=== PATIENT | female | born 1995 | race Two or more races ===

== ENCOUNTER 2017-08-14 14:10 | Observation (INO) | payer OTHER ==
[2017-08-14] MEDS ORDERED: ONDANSETRON 4 MG/2 ML VIAL IVP ONE (15:31)
[2017-08-14] MEDS ORDERED: NS 1,000 ML IV ONE ×2 (15:31→17:34)
--- NOTE | 2017-08-14 15:31 | EDPHY ---
H & P Stated Complaint: POSSIBLE REACTION TO TREATMENT FOR H PYLORI, SEEN EARLIER AT HPI/ROS: HPI CHIEF COMPLAINT: Abdominal pain, nausea, vomiting HISTORY OF PRESENT ILLNESS: This patient 21-year-old female significant past medical history for cyclic vomiting syndrome, anxiety, in H pylori, she presents emergency room with nausea vomiting and upper abdominal pain. She describes the upper abdominal pain is rather severe 7/10 nonradiating. Associated nausea vomiting. Also had loose stool this morning. She denies any fever. Denies chest pain or shortness of breath. Main complaint is nausea with abdominal pain epigastric region. Past Medical History: Cyclic vomiting syndrome, anxiety, recently being treated for H pylori Dr. Elaine is her GI physician. Past Surgical History: D and C. Otherwise no intra-abdominal surgeries. Social History: Denies daily use of alcohol. Smokes tobacco daily. Denies other illicit drugs. Family History: Noncontributory ROS REVIEW OF SYSTEMS: A comprehensive 10 point review of systems is otherwise negative aside from elements mentioned in the history of present illness. Exam Constitutional appears uncomfortable, triage nursing summary reviewed, vital signs reviewed, awake/alert. Eyes normal conjunctivae and sclera, EOMI, PERRLA. HENT normal inspection, atraumatic, moist mucus membranes, no epistaxis, neck supple/ no meningismus, no raccoon eyes. Respiratory clear to auscultation bilaterally, normal breath sounds, no respiratory distress, no wheezing. Cardiovascular rate normal, regular rhythm, no murmur, no edema, distal pulses normal. Gastrointestinal soft, mild tender palpation epigastric region, no rebound, no guarding, normal bowel sounds, no distension, no pulsatile mass. Genitourinary no CVA tenderness. Musculoskeletal no midline vertebral tenderness, full range of motion, no calf swelling, no tenderness of extremities, no meningismus, good pulses, neurovascularly intact. Skin pink, warm, & dry, no rash, skin atraumatic. Neurologic awake, alert and oriented x 3, AAOx3, moves all 4 extremities equally, motor intact, sensory intact, CN II-XII intact, normal cerebellar, normal vision, normal speech. Psychiatric normal mood/affect. Heme/Lymph/Immune no lymphadenopathy. Differential diagnosis includes but is not limited to and in no particular order : Bowel obstruction, appendicitis, gallbladder disease, diverticulitis, colitis , enteritis, perforated viscus, gastritis, GERD, esophagitis, urinary tract infection, pyelonephritis, kidney stones Medical Decision Making: Plan for this patient IV establishment IV fluid bolus , IV Haldol 5 mg for nausea vomiting anxiety, check basic blood work, CT abdomen pelvis with IV contrast Re-evaluation: 1737: Re-evaluation at this time patient resting comfortably. Feels much better after IV fluids and Haldol. Not vomiting. CT scan pending. 1748: I did re-evaluate her abdomen is soft she does have some periumbilical abdominal pain. She is not vomiting she does tell me she feels better. I have ordered her 2nd L at this time additionally she still complains of some nausea so I have ordered her 12.5 mg IV Phenergan. Will re-evaluate. Urinalysis and CT pending. 1915: CT scan abdomen pelvis with IV contrast called to me shows an abnormal fluid collection the right lower quadrant. The differential for this includes fluid in the small intestines, versus hydrosalpinx versus ruptured appendicitis with abscess. Spoke with Dr. Aguirre about this. Will proceed with pelvic ultrasound to further delineate this right lower quadrant fluid collection. 2019: I spoke with the hospitalist service Dr. Maximiliano Alvarado agrees to admit this patient for intractable abdominal pain and nausea. Additionally I will consult Dr. Braswell about this patient's abnormal CT scan. The ultrasound did not show acute appendicitis. Nor did show hydrosalpinx. Recommend admission the hospital for ongoing abdominal pain will plan most likely to repeat imaging of her abdomen in a few hours with CT scan abdomen pelvis with IV and p.o. contrast. Will distally consult Dr. Braswell for further recommendations. 2022: I have consult Dr. Braswell with surgery. He will go and see the patient. Source: Patient - Personal History LMP (Females 10-55): 8-14 Days Ago Current Tetanus Diphtheria and Acellular Pertussis (TDAP): Yes Tetanus Vaccine Date: < 10 YEARS - Medical/Surgical History Hx Asthma: No Hx Chronic Respiratory Disease: No Hx Diabetes: No Hx Cardiac Disease: No Hx Renal Disease: No Hx Cirrhosis: No Hx Alcoholism: No Hx HIV/AIDS: No Hx Splenectomy or Spleen Trauma: No Other PMH: anxiety, depression, recurrent n/v with neg w/u. , HSV, PV. molar and two d&c's in mar 2015, - Social History Smoking Status: Current some day smoker Constitutional: Initial Vital Signs Temperature (C) 36.9 C 08/14/17 14:48 Heart Rate 94 08/14/17 14:48 Respiratory Rate 16 08/14/17 14:48 Blood Pressure 139/84 H 08/14/17 14:48 O2 Sat (%) 97 08/14/17 14:48 O2 Delivery Mode Room Air Allergies/Adverse Reactions: No Known Allergies Allergy (Verified 08/14/17 14:50) Home Medications: Medication Instructions Recorded ALPRAZolam [Xanax 1 MG (*)] 2 mg PO HS 11/02/14 Acyclovir [Zovirax 400 mg (*)] 400 mg PO BID 08/14/17 DULoxetine [Cymbalta 30 MG (*)] 30 mg PO DAILY 08/14/17 Acetaminophen [Tylenol 325mg (*)] 650 mg PO Q4HRS PRN tab 08/15/17 Ondansetron Odt [Zofran Odt 4 mg 4 mg PO Q4HRS PRN #30 tab 08/15/17 (*)] Medical Decision Making - Data Points Laboratory Results: Laboratory Results 08/14/17 15:10 08/14/17 15:53 Medications Given: Discontinued Medications Acyclovir (Acyclovir) 400 mg PO BID SORIN Stop: 09/14/17 08:59 Last Admin: 08/15/17 09:51 Dose: 400 mg Duloxetine HCl (Cymbalta) 30 mg PO DAILY SORIN Stop: 02/11/18 08:59 Last Admin: 08/15/17 09:50 Dose: 30 mg Haloperidol Lactate (Haldol Injection) 5 mg IVP EDNOW ONE Stop: 08/14/17 15:36 Last Admin: 08/14/17 15:39 Dose: 5 mg Sodium Chloride (Ns) 1,000 mls @ 0 mls/hr IV EDNOW ONE; Wide Open PRN Reason: Protocol Stop: 08/14/17 15:32 Last Admin: 08/14/17 15:39 Dose: 1,000 mls Sodium Chloride (Ns) 1,000 mls @ 0 mls/hr IV ONCE ONE PRN Reason: Wide Open Stop: 08/14/17 17:35 Last Admin: 08/14/17 18:05 Dose: 1,000 mls Sodium Chloride (1/2 Ns) 1,000 mls @ 100 mls/hr IV CONT SORIN Stop: 02/10/18 20:44 Last Admin: 08/15/17 02:11 Dose: 1,000 mls Ondansetron HCl (Zofran) 4 mg IVP EDNOW ONE Stop: 08/14/17 15:32 Last Admin: 08/14/17 15:39 Dose: 4 mg Ondansetron HCl (Zofran) 4 mg IVP Q4HRS PRN PRN Reason: Nausea/Vomiting, Can't Take PO Stop: 02/10/18 20:36 Last Admin: 08/14/17 20:52 Dose: 4 mg Ondansetron HCl (Zofran Odt) 4 mg PO Q4HRS PRN PRN Reason: Nausea/Vomiting, Use 1st Stop: 02/10/18 20:36 Last Admin: 08/15/17 09:57 Dose: 4 mg Oxycodone HCl (Oxycodone Ir) 5 - 10 mg PO Q3HRS PRN PRN Reason: Pain, Severe Able to Take PO Stop: 08/24/17 20:36 Last Admin: 08/15/17 05:19 Dose: 5 mg Promethazine HCl (Phenergan) 12.5 mg IVP ONCE ONE Stop: 08/14/17 17:49 Last Admin: 08/14/17 18:06 Dose: 12.5 mg Departure - Departure Disposition: [facility] Acute Clinical Impression: Abdominal pain Qualifiers: Abdominal location: generalized Qualified Code(s): R10.84 - Generalized abdominal pain Condition: Good
[2017-08-14] MEDS ORDERED: HALOPERIDOL LACT 5 MG/ML INJ IVP ONE (15:35)
[2017-08-14 15:43] LABS: % IMMATURE GRANULYOCYTES 0.5 % (0.0-1.1); ABSOLUTE IMMATURE GRANULOCYTES 0.08 10^3/uL (0.00-0.10); ADD DIFF? NO; ADD MORPH? NO; ADD SCAN? NO; ATYPICAL LYMPHOCYTE FLAG 0 (0-99); FRAGMENT RBC FLAG 0 (0-99); HEMATOCRIT 42.5 % (38.0-47.0); HEMOGLOBIN 14.6 g/dL (12.6-16.3); LEFT SHIFT FLG 0 (0-99); LIPEMIA HEMOLYSIS FLAG 90 (0-99); MEAN CELL HEMOGLOBIN 30.5 pg (27.9-34.1); MEAN CELL HEMOGLOBIN CONCENTR. 34.4 g/dL (32.4-36.7); MEAN CELL VOLUME 88.9 fL (81.5-99.8); MEAN PLATELET VOLUME 9.6 fL (8.7-11.7); PLATELET CLUMPS FLAG 0 (0-99); PLATELET COUNT 324 10^3/uL (150-400); RED BLOOD CELL COUNT 4.78 10^6/uL (4.18-5.33); RED CELL DISTRIBUTION WIDTH 13.7 % (11.5-15.2)
[2017-08-14 16:18] LABS: ALANINE AMINOTRANSFERASE 29 IU/L (9-52); ALBUMIN 4.7 g/dL (3.5-5.0); ALKALINE PHOSPHATASE 54 IU/L (38-126); ANION GAP 19 mEq/L (8-16); ASPARTATE AMINOTRANSFERASE 20 IU/L (14-46); BILIRUBIN,TOTAL 0.8 mg/dL (0.1-1.4); BILIRUBIN-CONJUGATED 0.3 mg/dL (0.0-0.5); BILIRUBIN-UNCONJUGATED 0.5 mg/dL (0.0-1.1); CALCIUM 9.7 mg/dL (8.5-10.4); CARBON DIOXIDE 21 mEq/l (22-31); CHLORIDE 106 mEq/L (97-110); CREATININE 0.6 mg/dL (0.6-1.0); GLOMERULAR FILTRATION RATE > 60; GLUCOSE 102 mg/dL (70-100); POTASSIUM 3.6 mEq/L (3.5-5.2); SODIUM 146 mEq/L (134-144); TOTAL PROTEIN 7.6 g/dL (6.3-8.2)
[2017-08-14] MEDS ORDERED: PROMETHAZINE HCL 25 MG/ML INJ IVP ONE (17:48)
[2017-08-14 17:54] LABS: COLOR YELLOW; LEUKOCYTE ESTERASE,URINE NEGATIVE (NEGATIVE); NITRITE,URINE NEGATIVE (NEGATIVE)
[2017-08-14] MEDS ORDERED: IOPAMIDOL (ISOVUE-300) 100 ML BTL ONE (18:29)
[2017-08-14] MEDS ORDERED: PROMETHAZINE HCL 25 MG/ML INJ IVP PRN (20:37)
[2017-08-14] MEDS ORDERED: ONDANSETRON DISINTEGRATING 4 MG TAB PO PRN (20:37)
[2017-08-14] MEDS ORDERED: ONDANSETRON 4 MG/2 ML VIAL IVP PRN (20:37)
[2017-08-14] MEDS ORDERED: ACETAMINOPHEN 325 MG TAB PO PRN (20:37)
[2017-08-14] MEDS: oxyCODONE IR 5 MG TAB PO PRN (20:52)
[2017-08-14] MEDS: 1/2 NS 1,000 ML IV SCH (20:56)
--- NOTE | 2017-08-14 21:01 | PDCONSULT ---
Chair Caner Note: Chief complaint: Intractable nausea vomiting Seen at the request of Dr. Zamorano emergency room [facility] History of present illness: This is a 21-year-old woman presents with intractable nausea and vomiting after taking antibiotics for treatment of H pylori this morning. The patient has had a recent diagnosis of H pylori this past week and has been tolerating her medication up until today. She is very anxious and concerned about her nausea and vomiting and has had multiple medications for this problem. CT scan of the abdomen and pelvis to rule out other injuries showed possible pelvic inflammation on the right with differential of appendicitis, small-bowel obstruction, mesenteric inflammation, hydrosalpinx or abscess. The patient's pain is mostly in the epigastric region likely from emesis Previous diagnosis of cyclic vomiting 1 year ago Past medical history: Cyclic vomiting Past surgical history: None Family history noncontributory Medications at home Allergies: None Review of systems significant for H pylori and cyclic vomiting. Also complains of flatulence and abdominal bloating. Recent URI. All others reviewed and are negative Alert oriented anxious Sclerae anicteric Oropharynx moist Lungs clear bilaterally Regular rate and rhythm Abdomen soft nontender non distended Minimally tender epigastric region. No hepatosplenomegaly no rebound no scars indwelling umbilical being 2+ over 2+ radial dorsalis pedis pulses no rashes Normal skin turgor and tone No cervical supraclavicular adenopathy Trachea midline no JVD 08/14/17 15:10 08/14/17 15:53 Total Bilirubin 0.8 mg/dL (0.1-1.4) 08/14/17 15:53 Conjugated Bilirubin 0.3 mg/dL (0.0-0.5) 08/14/17 15:53 Unconjugated Bilirubin 0.5 mg/dL (0.0-1.1) 08/14/17 15:53 AST 20 IU/L (14-46) 08/14/17 15:53 ALT 29 IU/L (9-52) 08/14/17 15:[address] 08/14/17 15:35 Impression: 1. Chronic polycystic ovarian disease. 2. Right hydrosalpinx versus unusual prominent loop of fluid-filled small bowel versus chronic abscess from ruptured appendix. Consider pelvic sonogram +- repeat CT after drinking copious oral contrast for a couple of hours. Results called and discussed with Shady Zamorano MD, at 08/14/2017 19:13 General information for patients regarding this examination can be found at [email or web address]. If you have questions or comments about this report, please contact me at (hospital) or [phone] (cell). Pelvic/Renal Ultrasound 08/14/17 19:14 Impression: 1. No hydrosalpinx or right ovarian torsion. 2. Normal appendix. Results communicated to Dr. Arriaza at 20:07 Impressions/plan: Possible recurrent certain cyclic vomiting likely enteritis from antibiotic use Leukocytosis secondary to vomiting CT scan personally reviewed on PACS does not demonstrate significant lower GI pathology exam not consistent with this problem. Would treat for psychosocial issues and vomiting. No for surgical intervention or re-evaluation. Discussed with Dr. Alvarado who will be admitting the patient to Medicine service.
--- NOTE | 2017-08-14 21:33 | GHP ---
[f rep st] HISTORY AND PHYSICAL DATE OF ADMISSION: 08/14/2017 CHIEF COMPLAINT: Abdominal pain. HISTORY OF PRESENT ILLNESS: A 21-year-old female, who presents with abdominal pain. She had previou timothyy been diagnosed with cyclic vomiting syndrome, though she says she was misdiagnosed, as she had a recent upper endoscopy which showed that she had H pylori. She was started on antibiotics for treatm ent of this by Dr. Elaine. She threw up her antibiotics at 11 today and has had significant pain sin ce. She seems somewhat reluctant to give me a good history. For instance, when I asked her to fill me in on her previous abdominal history, she says "I don't know what there is to fill you in on." Mely rodriguez does tell me she has been hospitalized a handful of times, both here and in [place]. She has vomi rochelle countless times, though she is begging for water. She has had a few episodes of diarrhea over last 5 days. Her abdominal pain is epigastric, cramping, and severe in nature. PAST MEDICAL/SURGICAL HISTORY: 1. Cyclic vomiting syndrome. 2. Anxiety. 3. D and C. MEDICATIONS: Please see medication reconciliation. ALLERGIES: No known drug allergies. FAMILY HISTORY: She denies. SOCIAL HISTORY: She does not drink or smoke. 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 REVIEW OF SYSTEMS: A 10-point review of systems is conducted and is negative except per the HPI. PHYSICAL EXAMINATION: VITAL SIGNS: Blood pressure 131/75, heart rate 84, respiration rate 19, satti ng 95% on room air, temperature 36.6. GENERAL: The patient is an uncomfortable-appearing female, wh o is retching during my exam. HEENT: Shows her to be normocephalic, atraumatic. CARDIOVASCULAR: E xam shows her to be a regular rate and rhythm. No murmurs, rubs, or gallops. PULMONARY: Exam shows her lungs to be clear to auscultation bilaterally. ABDOMEN: Exam is very difficult, as she would n ot really let me do a good exam. However, she does appear soft. She is diffusely tender to palpatio n. SKIN: Exam shows no rash. : There is no Wyatt. NEUROLOGIC: Exam shows her to be alert and oriented x3. She is moving all extremities. PSYCHIATRIC: Exam shows her to be tearful and anxious. LABORATORY DATA: Her tox screen is negative. White count is 15.7, with a normal differential. Sodi um is 146. Bicarb is 21. Urinalysis shows 1+ ketones. DATA: 1. I personally viewed and interpreted her abdominal CT scan. It shows the read with a question of abscess versus dilated small bowel loop versus hydrosalpinx. There is no free air. 2. Pelvic renal ultrasound shows no hydrosalpinx or right ovarian torsion, with a normal appendix. IMPRESSION AND PLAN: A 21-year-old female with cyclic vomiting syndrome versus chronic abdominal gutierrez n, who presents with acute abdominal pain and intractable vomiting. 1. Intractable abdominal pain/intractable vomiting: Initial read of the CT scan was concerning, tho ugh appendicitis and hydrosalpinx were ruled out by ultrasound. This was viewed and discussed with Paul Braswell, who feels that this is relatively benign scan overall and she has a nonsurgical abdomen. We will provide her with supportive care. This is likely an exacerbation of her recurring abdominal pain and vomiting, though she is reluctant to accept this diagnosis, as she feels that she likely archer s Helicobacter pylori. She is currently being treated for this. We will monitor her overnight. 2. Dehydration: She will get intravenous fluids. 3. Leukocytosis: I suspect that this is more stress than indicative of a true abdominal process. W e will recheck in the morning. 4. Hypernatremia: Rehydrate and recheck. /[id number]/MODL
[2017-08-15] MEDS: 1/2 NS 1,000 ML IV SCH (02:11)
[2017-08-15] MEDS: oxyCODONE IR 5 MG TAB PO PRN (05:19)
[2017-08-15 05:34] LABS: % IMMATURE GRANULYOCYTES 0.3 % (0.0-1.1); ABSOLUTE IMMATURE GRANULOCYTES 0.04 10^3/uL (0.00-0.10); ADD DIFF? NO; ADD MORPH? NO; ADD SCAN? NO; ATYPICAL LYMPHOCYTE FLAG 10 (0-99); FRAGMENT RBC FLAG 0 (0-99); HEMATOCRIT 38.8 % (38.0-47.0); HEMOGLOBIN 13.5 g/dL (12.6-16.3); LEFT SHIFT FLG 0 (0-99); LIPEMIA HEMOLYSIS FLAG 90 (0-99); MEAN CELL HEMOGLOBIN 30.5 pg (27.9-34.1); MEAN CELL HEMOGLOBIN CONCENTR. 34.8 g/dL (32.4-36.7); MEAN CELL VOLUME 87.6 fL (81.5-99.8); MEAN PLATELET VOLUME 9.1 fL (8.7-11.7); PLATELET CLUMPS FLAG 10 (0-99); PLATELET COUNT 283 10^3/uL (150-400); RED BLOOD CELL COUNT 4.43 10^6/uL (4.18-5.33); RED CELL DISTRIBUTION WIDTH 13.6 % (11.5-15.2)
[2017-08-15 05:52] LABS: ALANINE AMINOTRANSFERASE 21 IU/L (9-52); ALBUMIN 3.7 g/dL (3.5-5.0); ALKALINE PHOSPHATASE 41 IU/L (38-126); ANION GAP 13 mEq/L (8-16); ASPARTATE AMINOTRANSFERASE 15 IU/L (14-46); BILIRUBIN,TOTAL 0.8 mg/dL (0.1-1.4); CALCIUM 9.3 mg/dL (8.5-10.4); CARBON DIOXIDE 21 mEq/l (22-31); CHLORIDE 108 mEq/L (97-110); CREATININE 0.6 mg/dL (0.6-1.0); GLOMERULAR FILTRATION RATE > 60; GLUCOSE 94 mg/dL (70-100); POTASSIUM 4.3 mEq/L (3.5-5.2); SODIUM 142 mEq/L (134-144); TOTAL PROTEIN 5.8 g/dL (6.3-8.2)
[2017-08-15 07:30] VITALS: BP 107/78; PULSE 62; RESP 16; TEMP 99.4; O2SAT 93
[2017-08-15] MEDS ORDERED: DULoxetine 30 MG CAP PO SCH (09:00)
[2017-08-15] MEDS ORDERED: ACYCLOVIR 400 MG TAB PO SCH (09:00)
--- NOTE | 2017-08-15 11:10 | ASMTCMCOM ---
CM Note CM Note Notes: Patient 21 year old female in with vomiting after ANTB. Medically cleared for dc per hospitalist. No needs identified. Plan home independent. Date Signed: 08/15/2017 11:10 AM Electronically Signed By:Melody Powell RN
--- NOTE | 2017-08-15 13:55 | GDS ---
[f rep st] DISCHARGE SUMMARY DISCHARGE DIAGNOSIS: Nausea and vomiting. CONSULTATIONS: General surgery. STUDIES AND PROCEDURES DONE: 1. CT of the abdomen. 2. Pelvic ultrasound. PHYSICAL EXAM: GENERAL: The patient is alert. VITAL SIGNS: Afebrile at 37.4, pulse 62, respirator y rate 16, blood pressure is 107/78. She is saturating 93% on room air. I have seen and evaluated t he patient on the day of discharge. HOSPITAL COURSE: The patient is a 21-year-old female who presented to the emergency room with compla ints of abdominal pain and nausea and vomiting. She was evaluated and diagnosed with intractable abd ominal pain with vomiting. During this hospitalization, a CT scan of her abdomen was performed as we ll as ultrasound. She did receive a consultation from surgery. It was felt that she was presenting with a nonsurgical abdomen. Her condition has completely improved. She is tolerating a regular diet . She has had no further bouts of emesis during this hospitalization. The patient was being treated for H pylori and feels that this treatment initiated her abdominal pain and vomiting. I have instru cted her to follow up with Dr. Elaine her primary application support analyst. FOLLOW UP: She will be discharged home with outpatient followup with Dr. Elaine [facility]. PENDING STUDIES: There are no pending studies. DISCHARGE MEDICATIONS: Please refer to EMR form. I have provided the patient a prescription for Zof ran at the time of this disposition. I have not adjusted her other previously prescribed home medica tions. /[id number]/MODL
--- NOTE | 2017-08-15 16:25 | ASDISCHSUM ---
Discharge Information Plan Status:Home with No Needs Medically Cleared to Leave:08/14/2017 Discharge Date:08/15/2017 11:41 AM CM D/C Disposition:Home, Routine, Self-Care ADT D/C Disposition:Home, Routine, Self-Care Projected Discharge Date:08/15/2017 11:41 AM Transportation at D/C: Discharge Delay Reason: Follow-Up Date:08/15/2017 11:41 AM Discharge Slot: Final Diagnosis: Placement Information Patient Contact Information Contact Name:ISAAC Relationship:Mother Address: Work Phone: City: [facility] Phone: [facility] Code: Email: Financial Information Financial Class:HMO and PPO Plans Primary Plan Desc:WILLIAM PPO POS HMO Primary Plan Number:[id number] Secondary Plan Desc: Secondary Plan Number: Assessment Information [facility] CM Progress Note CM Note CM Note Notes: Patient 21 year old female in with vomiting after ANTB. Medically cleared for dc per hospitalist. No needs identified. Plan home independent. Date Signed: 08/15/2017 11:10 AM Electronically Signed By:Melody Powell RN Intervention Information
[2017-08-15] MEDS ORDERED: ALPRAZolam 1 MG TAB PO SCH (21:00)
== END 2017-08-15 11:41 | disposition home or self-care (01) ==
LOC: F3E 08-15 02:07
PROVIDERS: ADMIT Student in an Organized Health Care Education/Training Program; ATTEND Student in an Organized Health Care Education/Training Program
DX: R11.2 Nausea with vomiting, unspecified (principal); R10.9 Unspecified abdominal pain
CPT/HCPCS: 80305; 96374; G0378; J1630; J2405; J2550; Q9967